=== PATIENT | male | born 1950 | race Caucasian/White ===

== ENCOUNTER 2017-05-29 21:17 | Emergency (ER) | payer MEDICARE, BC ==
[2017-05-29 21:36] VITALS: BP 182/92
--- NOTE | 2017-05-29 22:04 | EDM.PDOC ---
ED HPI GENERAL MEDICAL PROBLEM - General Chief Complaint: ENT Problem Stated Complaint: AML/SINUSITIS Time Seen by Provider: 05/29/17 21:30 Source of Information: Reports: Patient, Family History Limitations: Reports: No Limitations - History of Present Illness INITIAL COMMENTS - FREE TEXT/NARRATIVE: This is a 66-year-old male. He is receiving chemotherapy for AML by Dr. Khan out of [place]. Apparently last week he was in the hospital for 3 or 4 days due to a fever but his workup was negative. He was receiving some IV antibiotics during his stay. He went home on and then Thursday morning he awoke with sinus pain and drainage. Some of the drainage was bloody. He saw his family doctor yesterday and was noted to have some mild facial sinus-type swelling so a CT scan of the sinuses was performed that showed a moderate amount of mucosal thickening of the maxillary sinuses that the ostiomeatal complexes were occluded secondary to the mucosal thickening there was also some mild mucosal thickening of the ethmoid air cells in the sphenoid sinuses and the frontal recesses were patent. He was started on some Zithromax and then today he was started on some prednisone. He comes to the ER tonight because he is again low grade fever of 100.5. A CBC that was done today shows a white count of 0.2 with a neutrophil percent of 11.6 and hemoglobin of 8.5. His platelets were 33,000 day and he was given a unit of platelets yesterday. He has obvious increased facial swelling tonight along with upper lip swelling. He says the drainage has eased up somewhat and there is no more blood in it. He denies any cough he denies any nausea vomiting or diarrhea he denies any urinary symptoms. Face Pain Score (Numeric/FACES): 6 - Related Data Allergies Allergy/AdvReac Type Severity Reaction Status Date / Time No Known Allergies Allergy Verified 02/05/17 11:26 Home Meds: Home Meds Acyclovir [Zovirax] 800 mg PO BID 02/05/17 [History] Allopurinol [Zyloprim] 100 mg PO BID 02/05/17 [History] Cyanocobalamin (Vitamin B-12) [B-12] 1,000 mg PO DAILY 02/05/17 [History] Fluconazole [Diflucan] 200 mg PO DAILY 02/05/17 [History] Ondansetron HCl [Zofran] 4 mg PO Q6HR PRN 02/05/17 [History] Azithromycin [IJD: Azithromycin] 250 mg PO DAILY 05/29/17 [History] Carvedilol [Coreg] 12.5 mg PO BID 05/29/17 [History] Cefdinir [Omnicef] 300 mg PO BID 05/29/17 [History] Liver Extract (Beef-Pork) [Nexavir] 400 mg PO BID 05/29/17 [History] Pantoprazole Sodium [Protonix] 40 mg PO BID 05/29/17 [History] ED ROS ENT - Review of Systems Review Of Systems: See Below Constitutional: Reports: Fever, Malaise. Denies: Chills, Diaphoresis HEENT: Reports: Sinus Problem, Other (As per history of present illness) Respiratory: Denies: Shortness of Breath, Cough Cardiovascular: Reports: No Symptoms Endocrine: Reports: No Symptoms GI/Abdominal: Denies: Abdominal Pain, Diarrhea, Nausea, Vomiting : Denies: Dysuria Musculoskeletal: Reports: No Symptoms Skin: Reports: No Symptoms Neurological: Reports: No Symptoms Psychiatric: Reports: No Symptoms Hematologic/Lymphatic: Reports: Anemia, Easy Bleeding ED EXAM, ENT - Physical Exam Exam: See Below Exam Limited By: No Limitations General Appearance: Alert, WD/WN, No Apparent Distress Eye Exam: Bilateral Eye: Normal Inspection (Due to the facial swelling his left eyelids are also swollen and he has a hard time opening up his left eye though the right eye lids are not as swollen) Ears: Normal External Exam, Normal Canal, Normal TMs Nose: Nasal Discharge, Dried Blood, Other (There is minimal drainage though it is dry) Mouth/Throat: Normal Inspection, Normal Oropharynx, Other (No obvious exudates or tonsillar swelling) Head: Sinus Tenderness, Other (He has very marked left maxillary area facial swelling with left eyelid swelling his upper lip is very swollen as well a right maxillary sinus area is also swollen but the left is much greater than the right and his right eyelids are not swollen is the left, everything is tender on the anterior face area) Neck: Supple Respiratory/Chest: No Respiratory Distress, Lungs Clear Cardiovascular: Regular Rate, Rhythm, No Murmur GI/Abdominal: Soft Back: Other (Denies any tenderness) Extremities: Normal Inspection, Normal Range of Motion Neurological: Alert, Oriented Psychiatric: Normal Affect, Normal Mood Skin: Warm, Dry Course - Vital Signs Last Recorded V/S: Last Vital Signs Temp 100.7 F H 05/29/17 23:59 Pulse 80 05/29/17 21:31 Resp 20 05/29/17 21:31 BP 182/92 H 05/29/17 21:31 Pulse Ox - Orders/Labs/Meds Orders: Active Orders 24 hr Category Date Time Status CULTURE BLOOD [BC] Stat Lab 05/29/17 23:25 Received CULTURE BLOOD [BC] Stat Lab 05/29/17 23:52 Received Cefepime [Maxipime in D5W 2 GM/50 ML] 2 gm Med 05/29/17 23:58 Active Premix Bag 1 bag IV ONETIME Blood Culture x2 Reflex Set [OM.PC] Stat Oth 05/29/17 23:01 Ordered Medication Orders Cefepime HCl 2 gm/ Premix 50 mls @ 100 mls/hr IV ONETIME ONE Stop: 05/30/17 00:27 Labs: Laboratory Tests 05/29/17 05/29/17 05/29/17 Range/Units 22:19 22:19 22:19 WBC 0.22 L* (4.23-9.07) K/mm3 RBC 2.77 L (4.63-6.08) M/mm3 Hgb 7.8 L (13.7-17.5) gm/L Hct 22.6 L (40.1-51.0) % MCV 81.6 (79.0-92.2) fl MCH 28.2 (25.7-32.2) pg MCHC 34.5 (32.2-35.5) g/dl RDW Std Deviation 39.4 (35.1-43.9) fL Plt Count 29 L (163-337) K/mm3 MPV 9.9 (9.4-12.3) fl Neut % (Auto) 27.4 L (34.0-67.9) % Lymph % (Auto) 13.6 L (21.8-53.1) % C[place]shaw % (Auto) 54.5 H (5.3-12.2) % Eos % (Auto) 0 L (0.8-7.0) Baso % (Auto) 0.0 L (0.1-1.2) % Neut # (Auto) 0.06 L (1.78-5.38) K/mm3 Lymph # (Auto) 0.03 L (1.32-3.57) K/mm3 [place] # (Auto) 0.12 L (0.30-0.82) K/mm3 Eos # (Auto) 0.00 L (0.04-0.54) K/mm3 Baso # (Auto) 0.00 L (0.01-0.08) K/mm3 Manual Slide Review Abnormal smear Sodium 132 L (136-145) mEq/L Potassium 4.1 (3.5-5.1) mEq/L Chloride 97 L (98-107) mEq/L Carbon Dioxide 27 (21-32) mEq/L Anion Gap 12.1 (5-15) BUN 14 (7-18) mg/dL Creatinine 1.2 (0.7-1.3) mg/dL Est Cr Clr Drug Dosing 63.37 mL/min Estimated GFR (MDRD) > 60 (>60) mL/min BUN/Creatinine Ratio 11.7 L (14-18) Glucose 265 H (80-115) mg/dL Lactic Acid 1.7 (0.4-2.0) mmol/L Calcium 8.8 (8.5-10.1) mg/dL Total Bilirubin 0.7 (0.2-1.0) mg/dL AST 38 H (15-37) U/L ALT 81 H (16-63) U/L Alkaline Phosphatase 117 H (46-116) U/L Total Protein 7.2 (6.4-8.2) g/dl Albumin 2.6 L (3.4-5.0) g/dl Globulin 4.6 gm/dL Albumin/Globulin Ratio 0.6 L (1-2) Meds: Medications Generic Name Dose Route Start Last Admin Trade Name Freq PRN Reason Stop Dose Admin Cefepime HCl 2 gm/ Premix 50 mls @ 100 mls/hr 05/29/17 23:58 IV 05/30/17 00:27 ONETIME ONE Discontinued Medications Generic Name Dose Route Start Last Admin Trade Name Freq PRN Reason Stop Dose Admin Acetaminophen 925 mg 05/29/17 23:06 05/29/17 23:12 Tylenol PO 05/29/17 23:07 925 mg NOW ONE Administration - Re-Assessments/Exams Free Text/Narrative Re-Assessment/Exam: 05/29/17 23:02 Patient is noted now to have a fever of 102.7. 05/30/17 00:[address] Jones who is the internal medicine doctor on for Dr. Khan, he agrees to accept the patient in transport to [facility] as a direct admit. I spoke to the patient and the family regarding this and they are agreeable. 05/30/17 00:06 We will start cefepime IV 2 g here in the ER for the transport. Departure - Departure Time of Disposition: 00:03 Disposition: DC/Tfer to [facility] Condition: Fair Clinical Impression: Facial cellulitis, Acute febrile illness Acute sinusitis Qualifiers: Sinusitis location: maxillary Recurrence: non-recurrent Qualified Code(s): J01.00 - Acute maxillary sinusitis, unspecified Leukopenia Qualifiers: Leukopenia type: neutropenia Neutropenia type: other drug-induced Qualified Code(s): D70.2 - Other drug-induced agranulocytosis Anemia Qualifiers: Anemia type: unspecified type Qualified Code(s): D64.9 - Anemia, unspecified - Discharge Information Forms: ED Department Discharge Additional Instructions: Dr. Jones at [facility] agrees to accept the patient in transport as a direct admit. ED Communication - ED Communication Date/Time Date: 05/30/17 Time Called: 12:05 - Discussed Case With (1) Person/s Notified (1): Dr. Jones (Except the patient in transport) - My Orders Last 24 Hours: My Active Orders 05/29/17 23:01 Blood Culture x2 Reflex Set [OM.PC] Stat 05/29/17 23:25 CULTURE BLOOD [BC] Stat 05/29/17 23:52 CULTURE BLOOD [BC] Stat 05/29/17 23:58 Cefepime [Maxipime in D5W 2 GM/50 ML] 2 gm Premix Bag 1 bag IV ONETIME - Assessment/Plan Last 24 Hours: My Active Orders 05/29/17 23:01 Blood Culture x2 Reflex Set [OM.PC] Stat 05/29/17 23:25 CULTURE BLOOD [BC] Stat 05/29/17 23:52 CULTURE BLOOD [BC] Stat 05/29/17 23:58 Cefepime [Maxipime in D5W 2 GM/50 ML] 2 gm Premix Bag 1 bag IV ONETIME
[2017-05-29] MEDS ORDERED: Acetaminophen 325 MG Tab PO ONE (23:06)
[2017-05-29] MEDS ORDERED: Cefepime 2 GM in Premix Bag 1 BAG IV ONE (23:58)
== END 2017-05-30 00:45 ==
LOC: JD.ED 21:17
DX: J01.00 Acute maxillary sinusitis, unspecified (principal); C92.Z0 Other myeloid leukemia not having achieved remission; D70.2 Other drug-induced agranulocytosis; D64.9 Anemia, unspecified; L03.211 Cellulitis of face; Z79.899 Other long term (current) drug therapy
CPT/HCPCS: 36415; 80053; 83605; 85025; 87040; 96365; 99284; A9270; J0692